=== PATIENT | male | born 1955 | race Asian ===

== ENCOUNTER → 2017-09-25 | Outpatient (CLI) | payer BC ==
[~2017-09-25] MED LIST: ASA PO; FOLI-68 PO; [UNRECOGNIZED DRUG - OTHER] PO
[2017-09-25 10:09] LABS: BASOPHILS % 0.5 % (0.0-2.0); EOSINOPHILS % 3.2 % (0.0-5.0); HEMATOCRIT. 40.6 % (42.0-52.0); HEMOGLOBIN. 13.8 g/dL (14.0-18.0); LYMPHOCYTES % 24.9 % (20.0-50.0); MEAN CORPUSCULAR HEMOGLOBIN 32.2 pg (28.0-32.0); MEAN CORPUSCULAR VOLUME 94.5 fL (80.0-94.0); MEAN PLATELET VOLUME 8.3 fl (7.4-10.4); MONOCYTES % 9.7 % (2.0-8.0); NEUTROPHILS % 61.7 % (40.0-76.0); PLATELET 314 x1000/uL (130-400); RED BLOOD CELL COUNT 4.29 mill/uL (4.7-6.1); RED CELL DISTRIBUTION WIDTH 13.9 % (11.6-14.6)
[2017-09-25 10:10] LABS: CLARITY URINE CLEAR (CLEAR); COLOR URINE YELLOW (YELLOW); KETONES URINE NEGATIVE (NEGATIVE); LEUKOCYTE ESTERASE URINE NEGATIVE (NEGATIVE); NITRITE URINE NEGATIVE (NEGATIVE); OCCULT BLOOD URINE NEGATIVE (NEGATIVE); PROTEIN URINE NEGATIVE (NEGATIVE); SPECIFIC GRAVITY URINE 1.026 (1.005-1.030)
[2017-09-25 10:52] LABS: CARBON DIOXIDE 31 mEq/L (21-32); CHLORIDE 101 mEq/L (98-107); HDL CHOLESTEROL 49 mg/dL (40-59); LDL CHOLESTEROL 114 mg/dL (5-100)
== END | disposition home or self-care (01) ==
LOC: LAB 09:35
PROVIDERS: ATTEND Internal Medicine Nephrology
DX: E11.9 Type 2 diabetes mellitus without complications (principal)
CPT/HCPCS: 36415; 80053; 80061; 81001; 83036; 85025

== ENCOUNTER 2017-09-26 09:41 | Emergency (ER) | payer BC ==
[~2017-09-26] VITALS: Ht 167.6 cm; Wt 65.0 kg
[~2017-09-26 09:41] MED LIST changes: -IOHEXOL-300 100 ML BOTTLE ONE
[2017-09-26 09:48] VITALS: BP 112/87
== END 2017-09-26 12:36 | disposition home or self-care (01) ==
LOC: ER 10:02
DX: J18.9 Pneumonia, unspecified organism (principal); F17.200 Nicotine dependence, unspecified, uncomplicated
CPT/HCPCS: 71010; 99283

== ENCOUNTER → 2017-09-26 | Outpatient (CLI) | payer BC ==
[~2017-09-26] MED LIST changes: +IOHEXOL-300 100 ML BOTTLE ONE
== END | disposition home or self-care (01) ==
LOC: CT 08:16
PROVIDERS: ATTEND Internal Medicine Nephrology
DX: J90 Pleural effusion, not elsewhere classified (principal)
CPT/HCPCS: 71270; Q9967

== ENCOUNTER → 2017-12-19 | Outpatient (CLI) | payer BC ==
[~2017-12-19] MED LIST changes: +REGADENOSON 0.4 MG/5 ML IV ONE
[2017-12-19 08:04] LABS: BASOPHILS % 0.5 % (0.0-2.0); EOSINOPHILS % 4.1 % (0.0-5.0); HEMATOCRIT. 42.5 % (42.0-52.0); HEMOGLOBIN. 14.2 g/dL (14.0-18.0); LYMPHOCYTES % 26.7 % (20.0-50.0); MEAN CORPUSCULAR HEMOGLOBIN 30.6 pg (28.0-32.0); MEAN CORPUSCULAR VOLUME 91.8 fL (80.0-94.0); MEAN PLATELET VOLUME 8.4 fl (7.4-10.4); NEUTROPHILS % 61.7 % (40.0-76.0); PLATELET 299 x1000/uL (130-400); RED BLOOD CELL COUNT 4.63 mill/uL (4.7-6.1)
[2017-12-19 08:35] LABS: CHLORIDE 104 mEq/L (98-107)
[2017-12-19 08:46] LABS: HDL CHOLESTEROL 53 mg/dL (40-59); LDL CHOLESTEROL 165 mg/dL (5-100); T4 FREE 1.07 ng/dL (0.76-1.46)
== END | disposition home or self-care (01) ==
LOC: NM 07:11
PROVIDERS: ATTEND Specialist
DX: I34.0 Nonrheumatic mitral (valve) insufficiency (principal); I49.3 Ventricular premature depolarization; I11.9 Hypertensive heart disease without heart failure; E78.2 Mixed hyperlipidemia; J44.9 Chronic obstructive pulmonary disease, unspecified; R94.31 Abnormal electrocardiogram [ECG] [EKG]
CPT/HCPCS: 36415; 78452; 80053; 80061; 83036; 84439; 84443; 84481; 85025; 93017; 93306; A9500; J2785

== ENCOUNTER → 2018-01-13 | Outpatient (CLI) | payer BC ==
[~2018-01-13] MED LIST changes: +AMLO2.5T45 PO; +GLIP5TAB12 PO; +LOSA50TA20 PO; -REGADENOSON 0.4 MG/5 ML IV ONE
[2018-01-13 08:06] LABS: BASOPHILS % 0.7 % (0.0-2.0); EOSINOPHILS % 7.1 % (0.0-5.0); HEMATOCRIT. 40.5 % (42.0-52.0); HEMOGLOBIN. 13.6 g/dL (14.0-18.0); LYMPHOCYTES % 26.7 % (20.0-50.0); MEAN CORPUSCULAR HEMOGLOBIN 30.8 pg (28.0-32.0); MEAN CORPUSCULAR VOLUME 91.5 fL (80.0-94.0); MONOCYTES % 9.3 % (2.0-8.0); NEUTROPHILS % 56.2 % (40.0-76.0); PLATELET 324 x1000/uL (130-400); RED BLOOD CELL COUNT 4.42 mill/uL (4.7-6.1); RED CELL DISTRIBUTION WIDTH 14.2 % (11.6-14.6)
[2018-01-13 08:07] LABS: CHLORIDE 101 mEq/L (98-107)
[2018-01-13 08:16] LABS: HDL CHOLESTEROL 48 mg/dL (40-59)
[2018-01-13 08:24] LABS: LDL CHOLESTEROL 116 mg/dL (5-100)
== END | disposition home or self-care (01) ==
LOC: LAB 06:51
PROVIDERS: ATTEND Specialist
DX: I50.42 Chronic combined systolic (congestive) and diastolic (congestive) heart failure (principal); I42.8 Other cardiomyopathies
CPT/HCPCS: 36415; 80053; 80061; 85025

== ENCOUNTER 2018-01-20 07:15 | Day surgery (SDC) | payer BC ==
[~2018-01-20] VITALS: Ht 167.6 cm; Wt 65.3 kg
[~2018-01-20 07:15] MED LIST changes: -AMLO2.5T45 PO; -GLIP5TAB12 PO; -LOSA50TA20 PO
[2018-01-20] MEDS ORDERED: LOSA50TA20 PO (10:02)
[2018-01-20] MEDS ORDERED: AMLO2.5T45 PO (10:02)
[2018-01-20] MEDS ORDERED: GLIP5TAB12 PO (10:02)
[2018-01-20] MEDS ORDERED: LIDOCAINE HCL/PF 1% 10 MG/ML 5ML VIAL ONE (11:54)
[2018-01-20] MEDS ORDERED: IODIXANOL 320MG/ML 100 ML BOTTLE IV ONE (11:54)
[2018-01-20] MEDS ORDERED: ASPIRIN/SOD BICARB/CITRIC ACID 324MG TAB EFF ONE (12:03)
[2018-01-20] MEDS ORDERED: MIDAZOLAM HCL 2 MG/2 ML VIAL ONE (12:12)
[2018-01-20] MEDS ORDERED: FENTANYL CITRATE/PF 50MCG/ML 2ML VIAL ONE (12:13)
[2018-01-20] MEDS ORDERED: ATROPINE SULFATE 1MG/10ML SYR IV PRN (13:00)
[2018-01-20] MEDS ORDERED: ONDANSETRON HCL 4MG/2ML VIAL IV PRN (13:00)
[2018-01-20] MEDS ORDERED: MORPHINE SULFATE 4 MG/ML CPJ (NOT FOR IM USE) IV PRN (13:00)
[2018-01-20] MEDS ORDERED: ACETAMINOPHEN 325MG TABLET PO PRN (13:00)
[2018-01-20] MEDS ORDERED: NICARDIPINE 100MCG/ML 10ML VIAL (CATH LAB) IV ONE (14:30)
[2018-01-20] MEDS ORDERED: NITROGLYCERIN 50MCG/ML 10ML VIAL (CATH LAB) IV ONE (14:30)
[2018-01-20] MEDS ORDERED: HEPARIN SODIUM 1,000 UNIT/1ML VIAL IV ONE (14:30)
[2018-01-20] MEDS ORDERED: CARVEDILOL 3.125 MG TABLET PO NR (16:17)
== END 2018-01-20 16:15 | disposition home or self-care (01) ==
LOC: CCL 07:15
PROVIDERS: ATTEND Specialist
DX: I25.10 Atherosclerotic heart disease of native coronary artery without angina pectoris (principal); Z87.891 Personal history of nicotine dependence; I11.0 Hypertensive heart disease with heart failure; I50.42 Chronic combined systolic (congestive) and diastolic (congestive) heart failure; E11.9 Type 2 diabetes mellitus without complications; I34.0 Nonrheumatic mitral (valve) insufficiency; E78.2 Mixed hyperlipidemia; I42.8 Other cardiomyopathies; Z79.899 Other long term (current) drug therapy; Z79.84 Long term (current) use of oral hypoglycemic drugs
CPT/HCPCS: 82962; 85347; 93458; 99152; 99153; C1769; C1887; C1893; J1644; J2250; J3010; J3490; Q9967

== ENCOUNTER → 2018-02-13 | Outpatient (CLI) | payer BC ==
[~2018-02-13] MED LIST changes: +GLIP5TAB12 PO; +LOSA50TA20 PO
[2018-02-13 10:43] LABS: CHLORIDE 102 mEq/L (98-107)
[2018-02-13 10:52] LABS: LDL CHOLESTEROL 132 mg/dL (5-100)
[2018-02-13 10:53] LABS: HDL CHOLESTEROL 48 mg/dL (40-59); T4 FREE 1.25 ng/dL (0.76-1.46)
== END | disposition home or self-care (01) ==
LOC: LAB 06:37
PROVIDERS: ATTEND Specialist
DX: I42.0 Dilated cardiomyopathy (principal); I25.10 Atherosclerotic heart disease of native coronary artery without angina pectoris; E78.2 Mixed hyperlipidemia; I11.9 Hypertensive heart disease without heart failure; R94.31 Abnormal electrocardiogram [ECG] [EKG]; E11.9 Type 2 diabetes mellitus without complications; Z87.891 Personal history of nicotine dependence
CPT/HCPCS: 36415; 80053; 80061; 84439; 84443; 84481

== ENCOUNTER → 2018-02-16 | Outpatient (CLI) | payer BC | END | disposition home or self-care (01) | LOC: NM 06:53 | PROVIDERS: ATTEND Specialist | DX: I25.10 Atherosclerotic heart disease of native coronary artery without angina pectoris (principal); I42.8 Other cardiomyopathies | CPT/HCPCS: 78451; A9505 ==

== ENCOUNTER 2018-02-24 07:13 | Inpatient (IN) | payer BC ==
[~2018-02-24] VITALS: Ht 167.6 cm; Wt 63.7 kg
[2018-02-24] VITALS (10 sets, daily range): BP systolic 103–122; BP diastolic 58–74
[2018-02-24] MEDS ORDERED: IODIXANOL 320MG/ML 200ML BOTTLE ONE (08:02)
[2018-02-24] MEDS ORDERED: IOHEXOL-300 100 ML BOTTLE ONE (08:02)
[2018-02-24] MEDS ORDERED: LIDOCAINE HCL/PF 1% 10 MG/ML 30ML VIAL ONE (08:03)
[2018-02-24] MEDS ORDERED: INSULIN REGULAR (HUMULIN R) UD 100 UNITS/ML SYR SUBCUT NR (08:30)
[2018-02-24] MEDS ORDERED: ISOS30TA6 PO (08:47)
[2018-02-24] MEDS ORDERED: ASPI-1159 PO (08:47)
[2018-02-24] MEDS ORDERED: LOSA50TA20 PO (08:48)
[2018-02-24] MEDS ORDERED: SIMV80TA70 PO (08:48)
[2018-02-24 08:50] LABS: BASOPHILS % 0.8 % (0.0-2.0); EOSINOPHILS % 5.8 % (0.0-5.0); HEMATOCRIT. 41.7 % (42.0-52.0); LYMPHOCYTES % 35.7 % (20.0-50.0); MEAN CORPUSCULAR HEMOGLOBIN 30.6 pg (28.0-32.0); MEAN CORPUSCULAR VOLUME 91.5 fL (80.0-94.0); MEAN PLATELET VOLUME 7.5 fl (7.4-10.4); MONOCYTES % 8.1 % (2.0-8.0); NEUTROPHILS % 49.6 % (40.0-76.0); PLATELET 263 x1000/uL (130-400); RED BLOOD CELL COUNT 4.56 mill/uL (4.7-6.1); RED CELL DISTRIBUTION WIDTH 13.9 % (11.6-14.6)
[2018-02-24] MEDS ORDERED: ASPIRIN/SOD BICARB/CITRIC ACID 324MG TAB EFF ONE (08:52)
[2018-02-24 08:53] LABS: CHLORIDE 103 mEq/L (98-107)
[2018-02-24 08:55] LABS: PARTIAL THROMBOPLASTIN TIME 27.1 sec (23.4-31.0); PROTHROMBIN TIME 10.5 sec (9.4-11.6)
[2018-02-24] MEDS ORDERED: MIDAZOLAM HCL 2 MG/2 ML VIAL ONE (08:55)
[2018-02-24] MEDS ORDERED: FENTANYL CITRATE/PF 50MCG/ML 2ML VIAL ONE (08:55)
[2018-02-24] MEDS ORDERED: NITROGLYCERIN 50MCG/ML 10ML VIAL (CATH LAB) IV ONE (09:09)
[2018-02-24] MEDS ORDERED: HEPARIN SODIUM 1,000 UNIT/1ML VIAL IV ONE (09:09)
[2018-02-24] MEDS ORDERED: NICARDIPINE 100MCG/ML 10ML VIAL (CATH LAB) IV ONE (09:09)
[2018-02-24] MEDS ORDERED: PHENYLEPHRINE 100MCG/ML 10ML VIAL (CATH LAB) IV ONE (09:09)
[2018-02-24] MEDS ORDERED: ACETAMINOPHEN 325MG TABLET PO PRN (10:30)
[2018-02-24] MEDS ORDERED: DEXTROSE 50% WATER 50ML SYRINGE IV PRN (10:30)
[2018-02-24] MEDS ORDERED: ONDANSETRON HCL 4MG/2ML VIAL IV PRN (10:30)
[2018-02-24] MEDS ORDERED: ATROPINE SULFATE 1MG/10ML SYR IV PRN (10:30)
[2018-02-24] MEDS ORDERED: MORPHINE SULFATE 4 MG/ML CPJ (NOT FOR IM USE) IV PRN (10:30)
[2018-02-24] MEDS ORDERED: SODIUM CHLORIDE 0.45% 600 ML IV ONE (10:30)
[2018-02-24] MEDS: BLOOD SUGAR DIAGNOSTIC STRIP TEST SCH ×3 (13:57→21:23)
[2018-02-24] MEDS: INSULIN LISPRO 100 UNITS/ML SUBCUT SCH ×3 (13:59→21:23)
[2018-02-24 14:15] LABS: BG BASE EXCESS 1.4 mmol/L (-2.0-2.0); BG CARBOXYHEMOGLOBIN 1.1 % (0.5-1.5); BG DEOXYHEMOGLOBIN 3.5 % (0.0-5.0); BG FRACTION INSPIRED OXYGEN 21; BG HCO3 ACT 25.4 mmol/L (22.0-26.0); BG METHEMOGLOBIN 0.3 % (0.0-1.5); BG OXYGEN SATURATION 96.5 % (92.0-98.5); BG OXYHEMOGLOBIN 95.1 % (94.0-97.0); BG PCO2 38.2 mmHg (35.0-45.0); BG PH 7.441 (7.350-7.450); BG PO2 82.6 mmHg (75.0-100.0); BG SAMPLE SITE A-LINE; BG TOTAL HEMOGLOBIN 14.5 g/dL (12.0-18.0); BG VENT MODE ROOM AIR
[2018-02-25] VITALS (30 sets, daily range): BP systolic 101–156; BP diastolic 52–108
[2018-02-25] MEDS: BLOOD SUGAR DIAGNOSTIC STRIP TEST SCH ×4 (06:48→21:44)
[2018-02-25] MEDS: GLIPIZIDE 5MG TABLET PO SCH (06:48)
[2018-02-25 07:09] LABS: BASOPHILS % 0.4 % (0.0-2.0); EOSINOPHILS % 4.7 % (0.0-5.0); HEMATOCRIT. 44.4 % (42.0-52.0); HEMOGLOBIN. 15.1 g/dL (14.0-18.0); LYMPHOCYTES % 22.3 % (20.0-50.0); MEAN CORPUSCULAR HEMOGLOBIN 31.1 pg (28.0-32.0); MEAN CORPUSCULAR VOLUME 91.3 fL (80.0-94.0); MEAN PLATELET VOLUME 8.1 fl (7.4-10.4); MONOCYTES % 7.4 % (2.0-8.0); NEUTROPHILS % 65.2 % (40.0-76.0); PLATELET 264 x1000/uL (130-400); RED BLOOD CELL COUNT 4.86 mill/uL (4.7-6.1); RED CELL DISTRIBUTION WIDTH 14.6 % (11.6-14.6)
[2018-02-25 07:33] LABS: CHLORIDE 104 mEq/L (98-107)
[2018-02-25] MEDS: LOSARTAN POTASSIUM 25 MG TABLET PO SCH (08:49)
[2018-02-25] MEDS: INSULIN LISPRO 100 UNITS/ML SUBCUT SCH ×4 (08:50→21:44)
[2018-02-25] MEDS: ASPIRIN 325MG TABLET PO SCH (09:19)
[2018-02-25] MEDS ORDERED: IODIXANOL 320MG/ML 200ML BOTTLE ONE (12:54)
[2018-02-25] MEDS ORDERED: LIDOCAINE HCL/PF 1% 10 MG/ML 30ML VIAL ONE (12:55)
[2018-02-25] MEDS ORDERED: FENTANYL CITRATE/PF 50MCG/ML 2ML VIAL ONE (12:59)
[2018-02-25] MEDS ORDERED: MIDAZOLAM HCL 2 MG/2 ML VIAL ONE (12:59)
[2018-02-25] MEDS ORDERED: IOHEXOL-300 100 ML BOTTLE ONE (13:00)
[2018-02-25] MEDS ORDERED: HEPARIN SODIUM 1,000 UNIT/1ML VIAL IV ONE (13:39)
[2018-02-25] MEDS ORDERED: ATROPINE SULFATE 1MG/10ML SYR IV PRN (14:00)
[2018-02-25] MEDS ORDERED: ONDANSETRON HCL 4MG/2ML VIAL IV PRN (14:00)
[2018-02-25] MEDS ORDERED: MORPHINE SULFATE 4 MG/ML CPJ (NOT FOR IM USE) IV PRN (14:00)
[2018-02-25] MEDS ORDERED: SODIUM CHLORIDE 0.45% 600 ML IV ONE (14:00)
[2018-02-25] MEDS ORDERED: ACETAMINOPHEN 325MG TABLET PO PRN (14:00)
[2018-02-26] VITALS (11 sets, daily range): BP systolic 100–156; BP diastolic 61–81
[2018-02-26] MEDS: BLOOD SUGAR DIAGNOSTIC STRIP TEST SCH ×3 (06:15→16:29)
[2018-02-26] MEDS: GLIPIZIDE 5MG TABLET PO SCH (06:46)
[2018-02-26] MEDS: INSULIN LISPRO 100 UNITS/ML SUBCUT SCH ×3 (06:49→16:29)
[2018-02-26 07:03] LABS: BASOPHILS % 0.3 % (0.0-2.0); EOSINOPHILS % 4.2 % (0.0-5.0); HEMATOCRIT. 44.2 % (42.0-52.0); HEMOGLOBIN. 14.9 g/dL (14.0-18.0); LYMPHOCYTES % 23.7 % (20.0-50.0); MEAN CORPUSCULAR HEMOGLOBIN 30.9 pg (28.0-32.0); MEAN CORPUSCULAR VOLUME 91.5 fL (80.0-94.0); MEAN PLATELET VOLUME 7.7 fl (7.4-10.4); NEUTROPHILS % 62.8 % (40.0-76.0); PLATELET 252 x1000/uL (130-400); RED BLOOD CELL COUNT 4.83 mill/uL (4.7-6.1); RED CELL DISTRIBUTION WIDTH 14.3 % (11.6-14.6)
[2018-02-26 07:11] LABS: CHLORIDE 103 mEq/L (98-107)
[2018-02-26] MEDS: ASPIRIN 325MG TABLET PO SCH (08:26)
[2018-02-26] MEDS: LOSARTAN POTASSIUM 25 MG TABLET PO SCH (08:26)
[2018-02-26] MEDS ORDERED: ASPIRIN 325MG TABLET PO SCH (09:00)
== END 2018-02-26 19:00 | disposition short-term general hospital (02) | DRG 247 ==
LOC: CCL 07:13 → 3WST 07:14
PROVIDERS: ADMIT Specialist; ATTEND Specialist
PROC: B4101ZZ Fluoroscopy of Abdominal Aorta using Low Osmolar Contrast (ICD-10-PCS; principal; 2018-02-24)
PROC: B2151ZZ Fluoroscopy of Left Heart using Low Osmolar Contrast (ICD-10-PCS; 2018-02-24)
PROC: 4A023N7 Measurement of Cardiac Sampling and Pressure, Left Heart, Percutaneous Approach (ICD-10-PCS; 2018-02-24)
PROC: B2111ZZ Fluoroscopy of Multiple Coronary Arteries using Low Osmolar Contrast (ICD-10-PCS; 2018-02-24)
PROC: B2181ZZ Fluoroscopy of Left Internal Mammary Bypass Graft using Low Osmolar Contrast (ICD-10-PCS; 2018-02-24)
PROC: 027034Z Dilation of Coronary Artery, One Artery with Drug-eluting Intraluminal Device, Percutaneous Approach (ICD-10-PCS; 2018-02-25)
PROC: B2111ZZ Fluoroscopy of Multiple Coronary Arteries using Low Osmolar Contrast (ICD-10-PCS; 2018-02-25)
DX: I25.10 Atherosclerotic heart disease of native coronary artery without angina pectoris (principal); E11.51 Type 2 diabetes mellitus with diabetic peripheral angiopathy without gangrene; I10 Essential (primary) hypertension; I70.8 Atherosclerosis of other arteries; F32.9 Major depressive disorder, single episode, unspecified; I25.5 Ischemic cardiomyopathy; F17.200 Nicotine dependence, unspecified, uncomplicated; I65.22 Occlusion and stenosis of left carotid artery; Z91.19 Patient's noncompliance with other medical treatment and regimen; Z87.01 Personal history of pneumonia (recurrent)
CPT/HCPCS: 36222; 36415; 36600; 37221; 71045; 75710; 80048; 82375; 82805; 82962; 83036; 85025; 85347; 85610; 85730; 93005; 93459; 93571; 93880; C1725; C1726; C1769; C1876; C1887; C1893; J1644; J1815; J2250; J2370; J3010; J3490; J7030; Q9967

== ENCOUNTER → 2018-04-28 | Outpatient (CLI) | payer BC ==
[~2018-04-28] MED LIST changes: -ASA PO; +ASPI-1159 PO; +ISOS30TA6 PO; +SIMV80TA70 PO; -[UNRECOGNIZED DRUG - OTHER] PO
== END | disposition home or self-care (01) ==
LOC: CARD 09:26
PROVIDERS: ATTEND Specialist
DX: I35.0 Nonrheumatic aortic (valve) stenosis (principal); I25.10 Atherosclerotic heart disease of native coronary artery without angina pectoris; I42.9 Cardiomyopathy, unspecified; I10 Essential (primary) hypertension; E11.9 Type 2 diabetes mellitus without complications; Z87.891 Personal history of nicotine dependence
CPT/HCPCS: 93306

== ENCOUNTER → 2018-12-09 | Outpatient (CLI) | payer BC ==
[2018-12-09 07:38] LABS: CHLORIDE 103 mEq/L (98-107)
[2018-12-09 07:43] LABS: BASOPHILS % 0.7 % (0.0-2.0); EOSINOPHILS % 2.7 % (0.0-5.0); HEMATOCRIT. 43.5 % (42.0-52.0); HEMOGLOBIN. 14.5 g/dL (14.0-18.0); LYMPHOCYTES % 35.4 % (20.0-50.0); MEAN CORPUSCULAR HEMOGLOBIN 32.2 pg (28.0-32.0); MEAN CORPUSCULAR VOLUME 96.6 fL (80.0-94.0); MEAN PLATELET VOLUME 8.2 fl (7.4-10.4); MONOCYTES % 9.4 % (2.0-8.0); NEUTROPHILS % 51.8 % (40.0-76.0); PLATELET 320 x1000/uL (130-400); RED CELL DISTRIBUTION WIDTH 14.8 % (11.6-14.6)
[2018-12-09 07:56] LABS: HDL CHOLESTEROL 61 mg/dL (40-59)
[2018-12-09 07:59] LABS: LDL CHOLESTEROL 95 mg/dL (5-100)
[2018-12-09 08:00] LABS: T4 FREE 1.37 ng/dL (0.76-1.46)
== END | disposition home or self-care (01) ==
LOC: LAB 06:59
PROVIDERS: ATTEND Specialist
DX: I25.10 Atherosclerotic heart disease of native coronary artery without angina pectoris (principal); I10 Essential (primary) hypertension
CPT/HCPCS: 36415; 80061; 83036; 84439; 84443; 84481

== ENCOUNTER → 2018-12-21 | Outpatient (CLI) | payer BC | END | disposition home or self-care (01) | LOC: CARD 08:53 | PROVIDERS: ATTEND Specialist | DX: I35.1 Nonrheumatic aortic (valve) insufficiency (principal); I25.10 Atherosclerotic heart disease of native coronary artery without angina pectoris; I11.9 Hypertensive heart disease without heart failure | CPT/HCPCS: 93306 ==

== ENCOUNTER → 2018-12-22 | Outpatient (CLI) | payer BC | END | disposition home or self-care (01) | LOC: PVL 09:56 | PROVIDERS: ATTEND Specialist | DX: I25.10 Atherosclerotic heart disease of native coronary artery without angina pectoris (principal); M79.606 Pain in leg, unspecified | CPT/HCPCS: 93923 ==

== ENCOUNTER → 2019-01-06 | Outpatient (CLI) | payer BC ==
[~2019-01-06] MED LIST changes: +REGADENOSON 0.4 MG/5 ML IV ONE
== END | disposition home or self-care (01) ==
LOC: CARD 08:37
PROVIDERS: ATTEND Specialist
DX: I25.10 Atherosclerotic heart disease of native coronary artery without angina pectoris (principal); I42.9 Cardiomyopathy, unspecified; Z95.1 Presence of aortocoronary bypass graft
CPT/HCPCS: 78452; 93017; A9500; J2785

== ENCOUNTER 2019-02-16 06:44 | Inpatient (IN) | payer BC ==
[2019-02-16] VITALS (24 sets, daily range): BP systolic 114–185; BP diastolic 47–90
[~2019-02-16] VITALS: Ht 167.6 cm; Wt 62.6 kg
[~2019-02-16 06:44] MED LIST changes: -REGADENOSON 0.4 MG/5 ML IV ONE
[2019-02-16] MEDS ORDERED: LIDOCAINE HCL 1% 20ML VIAL (Pyxis) INJ ONE ×2 (07:41→08:18)
[2019-02-16] MEDS ORDERED: IODIXANOL 320MG/ML 100 ML BOTTLE IV ONE (07:41)
[2019-02-16] MEDS ORDERED: ASPIRIN/SOD BICARB/CITRIC ACID 324MG TAB EFF ONE (07:42)
[2019-02-16 07:52] LABS: HEMATOCRIT. 39.6 % (42.0-52.0); HEMOGLOBIN. 13.1 g/dL (14.0-18.0); MEAN CORPUSCULAR VOLUME 96.8 fL (80.0-94.0); MEAN PLATELET VOLUME 8.2 fl (7.4-10.4); NEUTROPHILS % 61.4 % (40.0-76.0); PLATELET 344 x1000/uL (130-400); RED BLOOD CELL COUNT 4.09 mill/uL (4.7-6.1); RED CELL DISTRIBUTION WIDTH 14.8 % (11.6-14.6)
[2019-02-16 07:53] LABS: BASOPHILS % 0.6 % (0.0-2.0); EOSINOPHILS % 2.5 % (0.0-5.0); LYMPHOCYTES % 27.2 % (20.0-50.0); MONOCYTES % 8.3 % (2.0-8.0)
[2019-02-16 07:57] LABS: CHLORIDE 106 mEq/L (98-107)
[2019-02-16] MEDS ORDERED: METF-414 MT (07:59)
[2019-02-16] MEDS ORDERED: CARV3.1242 MT (07:59)
[2019-02-16] MEDS ORDERED: AMI2 MT (07:59)
[2019-02-16] MEDS ORDERED: FENTANYL CITRATE/PF 50MCG/ML 2ML VIAL ONE (08:03)
[2019-02-16] MEDS ORDERED: MIDAZOLAM HCL 2 MG/2 ML VIAL ONE (08:03)
[2019-02-16] MEDS ORDERED: IOHEXOL-300 100 ML BOTTLE ONE (08:40)
[2019-02-16] MEDS ORDERED: CLOPIDOGREL 75MG TABLET ONE (09:07)
[2019-02-16] MEDS ORDERED: ACETAMINOPHEN 325MG TABLET PO PRN (09:15)
[2019-02-16] MEDS ORDERED: ATROPINE SULFATE 1MG/10ML SYR IV PRN (09:15)
[2019-02-16] MEDS ORDERED: ONDANSETRON HCL 4MG/2ML INJ IV PRN (09:15)
[2019-02-16] MEDS ORDERED: CLOPIDOGREL 75MG TABLET PO ONE (09:15)
[2019-02-16] MEDS ORDERED: MORPHINE SULFATE 4 MG/ML CPJ (NOT FOR IM USE) IV PRN (09:15)
[2019-02-16] MEDS ORDERED: DEXTROSE 50% WATER 50ML SYRINGE IV PRN (09:15)
[2019-02-16] MEDS ORDERED: SODIUM CHLORIDE 0.45% 1,000 ML IV NR (10:54)
[2019-02-16] MEDS: AMIODARONE HCL 200 MG TABLET PO SCH (11:24)
[2019-02-16] MEDS: BLOOD SUGAR DIAGNOSTIC STRIP TEST SCH ×3 (11:50→21:00)
[2019-02-16] MEDS: INSULIN LISPRO 100 UNITS/ML SUBCUT SCH ×3 (12:20→21:15)
[2019-02-16] MEDS ORDERED: HEPARIN SODIUM 1,000 UNIT/1ML VIAL IV ONE (13:37)
[2019-02-16] MEDS: LOSARTAN POTASSIUM 25 MG TABLET PO SCH (21:15)
[2019-02-16] MEDS: CARVEDILOL 3.125 MG TABLET PO SCH (21:16)
[2019-02-17] VITALS (7 sets, daily range): BP systolic 124–169; BP diastolic 54–83
[2019-02-17 06:06] LABS: CLARITY URINE CLEAR (CLEAR); COLOR URINE YELLOW (YELLOW); KETONES URINE NEGATIVE (NEGATIVE); LEUKOCYTE ESTERASE URINE NEGATIVE (NEGATIVE); NITRITE URINE NEGATIVE (NEGATIVE); OCCULT BLOOD URINE NEGATIVE (NEGATIVE); PROTEIN URINE NEGATIVE (NEGATIVE); SPECIFIC GRAVITY URINE 1.014 (1.005-1.030); UROBILINOGEN URINE 0.2 E.U./dL (0.2-1.0)
[2019-02-17 06:29] LABS: BASOPHILS % 0.4 % (0.0-2.0); EOSINOPHILS % 1.9 % (0.0-5.0); HEMOGLOBIN. 12.6 g/dL (14.0-18.0); LYMPHOCYTES % 19.1 % (20.0-50.0); MEAN CORPUSCULAR HEMOGLOBIN 33.2 pg (28.0-32.0); MEAN CORPUSCULAR VOLUME 97.4 fL (80.0-94.0); MEAN PLATELET VOLUME 8.4 fl (7.4-10.4); NEUTROPHILS % 69.6 % (40.0-76.0); PLATELET 334 x1000/uL (130-400); RED CELL DISTRIBUTION WIDTH 14.9 % (11.6-14.6)
[2019-02-17] MEDS: BLOOD SUGAR DIAGNOSTIC STRIP TEST SCH (06:40)
[2019-02-17 06:42] LABS: CHLORIDE 106 mEq/L (98-107)
[2019-02-17] MEDS: LOSARTAN POTASSIUM 25 MG TABLET PO SCH (08:03)
[2019-02-17] MEDS: INSULIN LISPRO 100 UNITS/ML SUBCUT SCH (08:03)
[2019-02-17] MEDS: AMIODARONE HCL 200 MG TABLET PO SCH (08:04)
[2019-02-17] MEDS ORDERED: ASPIRIN 325MG TABLET PO SCH (09:00)
[2019-02-17] MEDS ORDERED: CLOPIDOGREL 75MG TABLET PO SCH (09:00)
[2019-02-17] MEDS: CARVEDILOL 3.125 MG TABLET PO SCH (10:15)
== END 2019-02-17 11:10 | disposition home or self-care (01) | DRG 254 ==
LOC: CCL 06:44 → 3WST 06:45
PROVIDERS: ADMIT Specialist; ATTEND Specialist
PROC: 047J3DZ Dilation of Left External Iliac Artery with Intraluminal Device, Percutaneous Approach (ICD-10-PCS; principal; 2019-02-16)
PROC: B41G1ZZ Fluoroscopy of Left Lower Extremity Arteries using Low Osmolar Contrast (ICD-10-PCS; 2019-02-16)
DX: E11.51 Type 2 diabetes mellitus with diabetic peripheral angiopathy without gangrene (principal); E78.00 Pure hypercholesterolemia, unspecified; I10 Essential (primary) hypertension; I25.10 Atherosclerotic heart disease of native coronary artery without angina pectoris; I65.22 Occlusion and stenosis of left carotid artery; I70.202 Unspecified atherosclerosis of native arteries of extremities, left leg; I25.5 Ischemic cardiomyopathy; Z79.4 Long term (current) use of insulin; Z79.82 Long term (current) use of aspirin; Z95.1 Presence of aortocoronary bypass graft
CPT/HCPCS: 36415; 37221; 75710; 80048; 82962; 85347; 93005; C1725; C1726; C1769; C1893; C1894; J0461; J1644; J1815; J2250; J3010; J3490; Q9967

== ENCOUNTER → 2019-04-13 | Outpatient (CLI) | payer BC ==
[~2019-04-13] MED LIST changes: +AMI2 MT; -ASPI-1159 PO; +ASPI-1393 PO; +CARV3.1242 MT; -GLIP5TAB12 PO; -ISOS30TA6 PO; -LOSA50TA20 PO; +LOSA50TA41 PO; +METF-414 MT; -SIMV80TA70 PO; +SIMV80TA90 PO
[2019-04-13 07:31] LABS: BASOPHILS % 0.5 % (0.0-2.0); EOSINOPHILS % 3.1 % (0.0-5.0); HEMATOCRIT. 38.4 % (42.0-52.0); HEMOGLOBIN. 13.1 g/dL (14.0-18.0); LYMPHOCYTES % 37.8 % (20.0-50.0); MEAN CORPUSCULAR VOLUME 96.9 fL (80.0-94.0); MEAN PLATELET VOLUME 7.6 fl (7.4-10.4); MONOCYTES % 10.4 % (2.0-8.0); NEUTROPHILS % 48.2 % (40.0-76.0); PLATELET 315 x1000/uL (130-400); RED BLOOD CELL COUNT 3.96 mill/uL (4.7-6.1); RED CELL DISTRIBUTION WIDTH 14.6 % (11.6-14.6)
[2019-04-13 08:33] LABS: CHLORIDE 105 mEq/L (98-107)
[2019-04-13 08:46] LABS: T4 FREE 1.22 ng/dL (0.76-1.46)
[2019-04-13 08:47] LABS: LDL CHOLESTEROL 99 mg/dL (5-100)
[2019-04-13 08:51] LABS: HDL CHOLESTEROL 55 mg/dL (40-59)
== END | disposition home or self-care (01) ==
LOC: LAB 07:00
PROVIDERS: ATTEND Specialist
DX: I11.9 Hypertensive heart disease without heart failure (principal); I25.10 Atherosclerotic heart disease of native coronary artery without angina pectoris; E78.2 Mixed hyperlipidemia; I42.8 Other cardiomyopathies; I73.89 Other specified peripheral vascular diseases
CPT/HCPCS: 36415; 80061; 83036; 84439; 84443; 84481

== ENCOUNTER → 2019-05-18 | Outpatient (CLI) | payer BC ==
[2019-05-18 07:35] LABS: CHLORIDE 106 mEq/L (98-107)
[2019-05-18 07:43] LABS: HDL CHOLESTEROL 56 mg/dL (40-59)
[2019-05-18 07:47] LABS: T4 FREE 1.42 ng/dL (0.76-1.46)
[2019-05-18 07:49] LABS: LDL CHOLESTEROL 212 mg/dL (5-100)
== END | disposition home or self-care (01) ==
LOC: US 06:46
PROVIDERS: ATTEND Specialist
DX: K76.0 Fatty (change of) liver, not elsewhere classified (principal); I11.9 Hypertensive heart disease without heart failure; I42.8 Other cardiomyopathies; I25.10 Atherosclerotic heart disease of native coronary artery without angina pectoris; I73.89 Other specified peripheral vascular diseases
CPT/HCPCS: 36415; 76700; 80061; 84439; 84443; 84481

== ENCOUNTER → 2019-07-27 | Outpatient (CLI) | payer BC ==
[2019-07-27 13:24] LABS: CHLORIDE 105 mEq/L (98-107)
[2019-07-27 13:31] LABS: LDL CHOLESTEROL 226 mg/dL (5-100)
[2019-07-27 13:33] LABS: HDL CHOLESTEROL 56 mg/dL (40-59); T4 FREE 1.41 ng/dL (0.76-1.46)
== END | disposition home or self-care (01) ==
LOC: LAB 12:02
PROVIDERS: ATTEND Specialist
DX: E78.2 Mixed hyperlipidemia (principal); I11.9 Hypertensive heart disease without heart failure
CPT/HCPCS: 36415; 80061; 84439; 84443; 84481

== ENCOUNTER → 2019-10-25 | Outpatient (CLI) | payer BC ==
[~2019-10-25] MED LIST changes: -ASPI-1393 PO; +ASPI-1497 PO
[2019-10-25 11:24] LABS: BASOPHILS % 0.8 % (0.0-2.0); EOSINOPHILS % 2.9 % (0.0-5.0); HEMATOCRIT. 45.5 % (42.0-52.0); HEMOGLOBIN. 15.2 g/dL (14.0-18.0); LYMPHOCYTES % 22.6 % (20.0-50.0); MEAN CORPUSCULAR HEMOGLOBIN 32.4 pg (28.0-32.0); MEAN CORPUSCULAR VOLUME 97.1 fL (80.0-94.0); MONOCYTES % 6.4 % (2.0-8.0); NEUTROPHILS % 67.3 % (40.0-76.0); RED BLOOD CELL COUNT 4.68 mill/uL (4.7-6.1); RED CELL DISTRIBUTION WIDTH 13.7 % (11.6-14.6)
[2019-10-25 11:31] LABS: CHLORIDE 105 mEq/L (98-107)
[2019-10-25 11:41] LABS: CLARITY URINE CLEAR (CLEAR); COLOR URINE YELLOW (YELLOW); KETONES URINE NEGATIVE (NEGATIVE); LEUKOCYTE ESTERASE URINE NEGATIVE (NEGATIVE); NITRITE URINE NEGATIVE (NEGATIVE); OCCULT BLOOD URINE NEGATIVE (NEGATIVE); PROTEIN URINE NEGATIVE (NEGATIVE); SPECIFIC GRAVITY URINE 1.018 (1.005-1.030); UROBILINOGEN URINE 0.2 E.U./dL (0.2-1.0)
[2019-10-25 11:43] LABS: LDL CHOLESTEROL 173 mg/dL (5-100)
[2019-10-25 11:45] LABS: HDL CHOLESTEROL 61 mg/dL (40-59)
[2019-10-25 12:07] LABS: MEAN PLATELET VOLUME 8.3 fl (7.4-10.4); PLATELET 298 x1000/uL (130-400)
[2019-10-26 08:07] LABS: *CREATININE RANDOM URINE 96.1 mg/dL (Not Estab.); MICROALBUMIN RANDOM URINE 24.4 ug/mL (Not Estab.)
== END | disposition home or self-care (01) ==
LOC: LAB 10:32
PROVIDERS: ATTEND Internal Medicine Nephrology
DX: Z00.01 Encounter for general adult medical examination with abnormal findings (principal); I10 Essential (primary) hypertension; E11.9 Type 2 diabetes mellitus without complications
CPT/HCPCS: 36415; 80053; 80061; 81003; 82043; 82570; 83036; 84153; 84439; 84443; 85025; G0103

== ENCOUNTER → 2019-10-25 | Outpatient (CLI) | payer BC ==
[2019-10-25 11:32] LABS: CHLORIDE 103 mEq/L (98-107)
[2019-10-25 11:49] LABS: LDL CHOLESTEROL 179 mg/dL (5-100)
[2019-10-25 11:51] LABS: HDL CHOLESTEROL 64 mg/dL (40-59)
== END | disposition home or self-care (01) ==
LOC: LAB 10:36
PROVIDERS: ATTEND Specialist
DX: I11.9 Hypertensive heart disease without heart failure (principal); E78.2 Mixed hyperlipidemia; R94.31 Abnormal electrocardiogram [ECG] [EKG]
CPT/HCPCS: 36415; 80053; 80061

== ENCOUNTER → 2020-06-28 | Outpatient (CLI) | payer BC ==
[2020-06-28 10:14] LABS: BASOPHILS % 0.6 % (0.0-2.0); EOSINOPHILS % 3.6 % (0.0-5.0); LYMPHOCYTES % 32.1 % (20.0-50.0); MEAN CORPUSCULAR HEMOGLOBIN 31.1 pg (28.0-32.0); MEAN CORPUSCULAR VOLUME 93.2 fL (80.0-94.0); MEAN PLATELET VOLUME 8.3 fl (7.4-10.4); MONOCYTES % 9.4 % (2.0-8.0); NEUTROPHILS % 54.3 % (40.0-76.0); PLATELET 310 x1000/uL (130-400); RED BLOOD CELL COUNT 4.82 mill/uL (4.7-6.1); RED CELL DISTRIBUTION WIDTH 13.5 % (11.6-14.6)
[2020-06-28 10:15] LABS: CHLORIDE 102 mEq/L (98-107)
[2020-06-28 10:22] LABS: LDL CHOLESTEROL 195 mg/dL (5-100)
[2020-06-28 10:23] LABS: HDL CHOLESTEROL 57 mg/dL (40-59)
== END | disposition home or self-care (01) ==
LOC: LAB 09:27
PROVIDERS: ATTEND Specialist
DX: E78.2 Mixed hyperlipidemia (principal); I11.9 Hypertensive heart disease without heart failure; R94.31 Abnormal electrocardiogram [ECG] [EKG]
CPT/HCPCS: 36415; 80053; 80061; 83036; 84443; 85025

== ENCOUNTER → 2020-09-13 | Outpatient (CLI) | payer BC ==
[2020-09-13 12:06] LABS: CHLORIDE 101 mEq/L (98-107)
[2020-09-13 12:14] LABS: LDL CHOLESTEROL 156 mg/dL (5-100)
[2020-09-13 12:15] LABS: T4 FREE 1.39 ng/dL (0.76-1.46)
[2020-09-13 12:18] LABS: HDL CHOLESTEROL 56 mg/dL (40-59)
== END | disposition home or self-care (01) ==
LOC: LAB 11:11
PROVIDERS: ATTEND Specialist
DX: E78.2 Mixed hyperlipidemia (principal); I10 Essential (primary) hypertension
CPT/HCPCS: 36415; 80053; 80061; 84439; 84443; 84481

== ENCOUNTER → 2020-10-19 | Outpatient (CLI) | payer BC | END | disposition home or self-care (01) | LOC: LAB 06:45 | PROVIDERS: ATTEND Specialist | DX: Z01.812 Encounter for preprocedural laboratory examination (principal); R05 Cough; Z20.828 Contact with and (suspected) exposure to other viral communicable diseases | CPT/HCPCS: 87426 ==

== ENCOUNTER → 2020-10-20 | Outpatient (CLI) | payer BC | END | disposition home or self-care (01) | LOC: PVL 12:15 | PROVIDERS: ATTEND Specialist | DX: I65.21 Occlusion and stenosis of right carotid artery (principal); I25.10 Atherosclerotic heart disease of native coronary artery without angina pectoris; I25.5 Ischemic cardiomyopathy; Z95.1 Presence of aortocoronary bypass graft | CPT/HCPCS: 93880 ==

== ENCOUNTER → 2021-07-17 | Outpatient (CLI) | payer BC | END | disposition home or self-care (01) | LOC: RAD 10:03 → CARD 10:03 → CCL 10:03 | PROVIDERS: ATTEND Specialist | DX: I08.0 Rheumatic disorders of both mitral and aortic valves (principal); I25.10 Atherosclerotic heart disease of native coronary artery without angina pectoris | CPT/HCPCS: 93306 ==

== ENCOUNTER → 2021-08-06 | Outpatient (CLI) | payer BC ==
[2021-08-06 12:04] LABS: CHLORIDE 104 mEq/L (98-107)
[2021-08-06 12:11] LABS: LDL CHOLESTEROL 101 mg/dL (5-100)
[2021-08-06 12:13] LABS: HDL CHOLESTEROL 56 mg/dL (40-59); T4 FREE 1.37 ng/dL (0.76-1.46)
== END | disposition home or self-care (01) ==
LOC: LAB 10:31
PROVIDERS: ATTEND Specialist
DX: I25.10 Atherosclerotic heart disease of native coronary artery without angina pectoris (principal); I11.9 Hypertensive heart disease without heart failure; E78.2 Mixed hyperlipidemia; R73.09 Other abnormal glucose
CPT/HCPCS: 36415; 80053; 80061; 83036; 84439; 84443; 84480

== ENCOUNTER → 2021-12-05 | Outpatient (CLI) | payer BC ==
[2021-12-05 12:16] LABS: BASOPHILS % 0.5 % (0.0-2.0); EOSINOPHILS % 4.2 % (0.0-5.0); HEMATOCRIT. 41.6 % (42.0-52.0); HEMOGLOBIN. 14.2 g/dL (14.0-18.0); LYMPHOCYTES % 30.4 % (20.0-50.0); MEAN CORPUSCULAR HEMOGLOBIN 32.1 pg (28.0-32.0); MEAN CORPUSCULAR VOLUME 94.2 fL (80.0-94.0); MEAN PLATELET VOLUME 7.8 fl (7.4-10.4); MONOCYTES % 7.7 % (2.0-8.0); NEUTROPHILS % 57.2 % (40.0-76.0); PLATELET 276 x1000/uL (130-400); RED BLOOD CELL COUNT 4.42 mill/uL (4.7-6.1); RED CELL DISTRIBUTION WIDTH 13.4 % (11.6-14.6)
[2021-12-05 12:24] LABS: CHLORIDE 102 mEq/L (98-107)
[2021-12-05 12:30] LABS: LDL CHOLESTEROL 119 mg/dL (5-100)
[2021-12-05 12:32] LABS: HDL CHOLESTEROL 58 mg/dL (40-59)
[2021-12-05 12:36] LABS: T4 FREE 1.28 ng/dL (0.76-1.46)
== END | disposition home or self-care (01) ==
LOC: LAB 11:28
PROVIDERS: ATTEND Specialist
DX: I11.9 Hypertensive heart disease without heart failure (principal); E78.2 Mixed hyperlipidemia; R94.31 Abnormal electrocardiogram [ECG] [EKG]
CPT/HCPCS: 36415; 80053; 80061; 83036; 84153; 84439; 84443; 84481; 85025; G0103

== ENCOUNTER → 2021-12-05 | Outpatient (CLI) | payer BC | END | disposition home or self-care (01) | LOC: LAB 11:18 | PROVIDERS: ATTEND Internal Medicine Nephrology | DX: R07.9 Chest pain, unspecified (principal); Z95.1 Presence of aortocoronary bypass graft | CPT/HCPCS: 71045 ==

== ENCOUNTER → 2022-08-20 | Outpatient (CLI) | payer BC ==
[2022-08-20 12:11] LABS: BASOPHILS % 0.4 % (0.0-2.0); EOSINOPHILS % 3.5 % (0.0-5.0); HEMATOCRIT. 44.6 % (42.0-52.0); HEMOGLOBIN. 14.8 g/dL (14.0-18.0); LYMPHOCYTES % 34.1 % (20.0-50.0); MEAN CORPUSCULAR HEMOGLOBIN 30.7 pg (28.0-32.0); MEAN CORPUSCULAR VOLUME 92.5 fL (80.0-94.0); MEAN PLATELET VOLUME 8.1 fl (7.4-10.4); MONOCYTES % 5.8 % (2.0-8.0); NEUTROPHILS % 56.2 % (40.0-76.0); PLATELET 297 x1000/uL (130-400); RED BLOOD CELL COUNT 4.82 mill/uL (4.7-6.1); RED CELL DISTRIBUTION WIDTH 14.8 % (11.6-14.6)
[2022-08-20 13:31] LABS: CHLORIDE 97 mEq/L (98-107)
[2022-08-20 13:45] LABS: HDL CHOLESTEROL 69 mg/dL (40-59); LDL CHOLESTEROL 153 mg/dL (5-100); T4 FREE 1.17 ng/dL (0.76-1.46)
== END | disposition home or self-care (01) ==
LOC: CARD 10:11
PROVIDERS: ATTEND Specialist
DX: I08.8 Other rheumatic multiple valve diseases (principal); I65.21 Occlusion and stenosis of right carotid artery; I48.91 Unspecified atrial fibrillation; R94.31 Abnormal electrocardiogram [ECG] [EKG]; I11.9 Hypertensive heart disease without heart failure; E78.2 Mixed hyperlipidemia
CPT/HCPCS: 36415; 80053; 80061; 83036; 84439; 84443; 84481; 85025; 93306; 93880